=== PATIENT | female | born 1945 | race Caucasian/White ===

== ENCOUNTER → 2019-12-21 | Outpatient (CLI) | payer MEDICARE, BC ==
[2019-12-21 13:15] LABS: ABSOLUTE EOSINOPHILS # (AUTO) 0.1 10^3/uL (0.0-0.6); ABSOLUTE LYMPHOCYTES (AUTO) 1.2 10^3/uL (0.5-4.7); ABSOLUTE MONOCYTES (AUTO) 0.6 10^3/uL (0.1-1.4); ABSOLUTE NEUT (AUTO) 3.2 10^3/uL (1.7-8.2); BASOPHILS % (AUTO) 0.5 % (0-2); HEMATOCRIT 39.6 % (36.0-47.0); HEMOGLOBIN 13.6 g/dL (12.0-15.5); LYMPHOCYTES % (AUTO) 23.2 % (13-45); MEAN CORPUSCULAR HEMOGLOBIN 31.9 pg (27.0-33.4); MEAN CORPUSCULAR HGB CONC 34.3 g/dL (32.0-36.0); MEAN CORPUSCULAR VOLUME 93 fl (80-97); MONOCYTES % (AUTO) 12.4 % (3-13); PLATELET COUNT 246 10^3/uL (150-450); RED BLOOD COUNT 4.26 10^6/uL (3.72-5.28); RED CELL DISTRIBUTION WIDTH 14.1 % (11.5-14.0); SEGMENTED NEUTROPHILS % (AUTO) 62.9 % (42-78); TOTAL CELLS COUNTED % (AUTO) 100 %; WHITE BLOOD COUNT 5.1 10^3/uL (4.0-10.5)
[2019-12-21 13:41] LABS: ALBUMIN 4.5 g/dL (3.5-5.0); ALKALINE PHOSPHATASE 47 U/L (38-126); ANION GAP 10 (5-19); ASPARTATE AMINO TRANSFERASE 33 U/L (14-36); BILIRUBIN,DIRECT 0.2 mg/dL (0.0-0.4); BILIRUBIN,TOTAL 0.9 mg/dL (0.2-1.3); BLOOD UREA NITROGEN 12 mg/dL (7-20); CALCIUM 9.3 mg/dL (8.4-10.2); CARBON DIOXIDE 31 mmol/L (22-30); CHLORIDE 96 mmol/L (98-107); GLUCOSE 94 mg/dL (75-110); POTASSIUM 3.5 mmol/L (3.6-5.0); TOTAL PROTEIN 7.3 g/dL (6.3-8.2)
[2019-12-21 13:55] LABS: FREE T3 2.76 pg/mL (2.77-5.27); FREE T4 (FREE THYROXINE) 0.87 ng/dL (0.78-2.19)
[2019-12-21 14:09] LABS: THYROID STIMULATING HORMONE 2.78 uIU/mL (0.47-4.68)
[2019-12-21 14:16] LABS: ERYTHROCYTE SEDIMENTATION RATE 8 mm/hr (0-30)
[2019-12-21 14:28] LABS: C-REACTIVE PROTEIN < 5.0 mg/L (<10.0)
== END ==
LOC: OD 12:31
PROVIDERS: ATTEND Physician Assistant
DX: M25.50 Pain in unspecified joint (principal); G89.4 Chronic pain syndrome; F41.9 Anxiety disorder, unspecified; M79.10 Myalgia, unspecified site
CPT/HCPCS: 36415; 80053; 82306; 82607; 82652; 84439; 84443; 84481; 85025; 85652; 86140; 86431

== ENCOUNTER 2020-06-26 08:28 | Day surgery (SDC) | payer MEDICARE, BC ==
[2020-06-21 10:56] LABS: INTERNATIONAL RATION (INR) 0.98; PARTIAL THROMBOPLASTIN TIME 31.3 SEC (23.5-35.8); PROTHROMBIN TIME 13.2 SEC (11.4-15.4)
[2020-06-21 10:57] LABS: ABSOLUTE EOSINOPHILS # (AUTO) 0.1 10^3/uL (0.0-0.6); ABSOLUTE MONOCYTES (AUTO) 0.9 10^3/uL (0.1-1.4); ABSOLUTE NEUT (AUTO) 3.2 10^3/uL (1.7-8.2); BASOPHILS % (AUTO) 0.5 % (0-2); EOSINOPHILS % (AUTO) 1.9 % (0-6); HEMATOCRIT 40.2 % (36.0-47.0); HEMOGLOBIN 13.8 g/dL (12.0-15.5); LYMPHOCYTES % (AUTO) 18.6 % (13-45); MEAN CORPUSCULAR HEMOGLOBIN 31.9 pg (27.0-33.4); MEAN CORPUSCULAR HGB CONC 34.3 g/dL (32.0-36.0); MEAN CORPUSCULAR VOLUME 93 fl (80-97); MONOCYTES % (AUTO) 17.5 % (3-13); PLATELET COUNT 223 10^3/uL (150-450); RED BLOOD COUNT 4.32 10^6/uL (3.72-5.28); RED CELL DISTRIBUTION WIDTH 12.9 % (11.5-14.0); SEGMENTED NEUTROPHILS % (AUTO) 61.5 % (42-78); TOTAL CELLS COUNTED % (AUTO) 100 %; WHITE BLOOD COUNT 5.3 10^3/uL (4.0-10.5)
[2020-06-21 11:00] LABS: APPEARANCE,URINE CLEAR; BILIRUBIN,URINE NEGATIVE (NEGATIVE); COLOR,URINE YELLOW; GLUCOSE, URINE NEGATIVE (NEGATIVE); KETONES,URINE NEGATIVE (NEGATIVE); LEUKOCYTE ESTERASE,URINE NEGATIVE (NEGATIVE); NITRITE,URINE NEGATIVE (NEGATIVE); PROTEIN,URINE NEGATIVE (NEGATIVE); UROBILINOGEN,URINE NEGATIVE mg/dL (<2.0)
[2020-06-21 11:16] LABS: ANION GAP 8 (5-19); BLOOD UREA NITROGEN 14 mg/dL (7-20); CALCIUM 9.7 mg/dL (8.4-10.2); CARBON DIOXIDE 34 mmol/L (22-30); CHLORIDE 94 mmol/L (98-107); GLUCOSE 105 mg/dL (75-110); POTASSIUM 4.1 mmol/L (3.6-5.0)
--- NOTE | 2020-06-21 15:24 | EKG REPORT ---
SEVERITY:- NORMAL ECG - SINUS RHYTHM : Confirmed by: Marc Orozco MD 21-Jun-2020 15:23:38
[~2020-06-26 08:28] MED LIST: CEFAZOLIN 1 GM/D5W RTU 1 GM/50 ML RTUPB IV PRN; LACTATED RINGERS 1000 ML IV PRN; LIDOCAINE 0.5% INJ-PF (5 MG/ML) 50 ML SDV SUBCUT PRN
[2020-06-26] MEDS ORDERED: CEFAZOLIN 1 GM/D5W RTU 1 GM/50 ML RTUPB IV ONE (08:31)
[2020-06-26] MEDS ORDERED: LIDOCAINE 1% INJ-PF (10 MG/ML) 30 ML SDV ONE (09:07)
[2020-06-26] MEDS ORDERED: TRIAMCINOLONE ACETONIDE INJ 40 MG/1 ML VIAL ONE (09:07)
[2020-06-26] MEDS ORDERED: PROPOFOL INJ 200 MG/20 ML VIAL IV ONE (09:10)
[2020-06-26] MEDS ORDERED: FENTANYL CITRATE INJ/PF 100 MCG/2 ML AMPUL ONE ×2 (09:10→10:21)
[2020-06-26] MEDS ORDERED: KETAMINE HCL INJ 500 MG/10 ML VIAL ONE (09:10)
[2020-06-26] MEDS ORDERED: MIDAZOLAM 2 MG/2 ML INJ ONE (09:10)
[2020-06-26] MEDS ORDERED: ONDANSETRON HCL INJ/PF 4 MG/2 ML SDV IV PRN (09:44)
[2020-06-26] MEDS ORDERED: FENTANYL CITRATE INJ/PF 100 MCG/2 ML AMPUL IV PRN ×3 (09:44)
[2020-06-26] MEDS ORDERED: DIPHENHYDRAMINE HCL 50 MG/ML VIAL IV PRN (09:44)
[2020-06-26] MEDS ORDERED: MEPERIDINE HCL/PF INJ 25 MG/1 ML DISP.SYRIN IV PRN (09:44)
[2020-06-26] MEDS ORDERED: PROMETHAZINE HCL INJ 25 MG/1 ML VIAL IV PRN ×2 (09:44)
--- NOTE | 2020-06-26 10:12 | Operative Report ---
Operative Report DATE OF SURGERY: 06/26/20 Operative Report: After obtaining informed consent advising the patient of the risk and benefits, including serious neurological injury bleeding infection allergic reaction and , she was taken to the operating room. She was placed comfortably in the prone position. She was then prepped with chlorhexidine with a suitable drying time prior to draping. Fluoroscopy was used to evaluate the spine. The L3-4 target space was identified. An epidural needle was used to enter the L3-4 space after anesthetizing 1% lidocaine to enter in the midline. Epidurogram was performed with appropriate spread and some limitation inferiorly at the L3-4 level of contrast. Landmarks were identified and a suitable track was determined for placement of mild instrumentation. Beginning on the left side a small incision was made after local anesthetic 1% lidocaine was applied. It was repeated on the right side at the selected entrance level. Mild instrumentation trocar was then advanced through the small incision down to the lamina of the L3-4 level on the left. Multiple x-ray views were taken particularly oblique and AP to assure satisfactory location. The bone rongeur was then utilized to remove the lamina and ligament at that level on the left in the superior and inferior regions. The tissue sculptor was then utilized to remove additional tissue. Improvement of the contrast spread was noted. This procedure was then repeated on the right as described above. Again, additional improvement in the contrast spread was noted. There was felt to be satisfactorily opening of the epidural space at L3-4. , resolving some of the spinal stenosis. All instrumentation was removed. The region was cleansed. Steristrips were placed followed by sterile dressings. The patient was then taken to the PACU for further postoperative care and monitoring. PREOPERATIVE DIAGNOSIS: lumbar spinal stenosis with neurogenic claudication POSTOPERATIVE DIAGNOSIS: lumbar spinal stenosis with neurogenic claudication OPERATION: MILD L3/4 SURGEON: SHAHEEN GONZALEZ ANESTHESIA: LMAC TISSUE REMOVED OR ALTERED: as noted COMPLICATIONS: none ESTIMATED BLOOD LOSS: 10 cc INTRAOPERATIVE FINDINGS: none PROCEDURE: MILD L3/4
[2020-06-26] MEDS ORDERED: OXYCODONE-ACETAMINOPHEN 5-325 MG TABLET PO PRN (10:27)
[2020-06-26] MEDS ORDERED: PHENYLEPHRINE HCL INJ/PF 10 MG/1 ML SDV ONE (10:57)
[2020-06-26] MEDS ORDERED: OXYCODONE-ACETAMINOPHEN 5-325 MG TABLET ONE (11:00)
[2020-06-26 12:32] VITALS: BP 139/83
--- NOTE | 2020-06-26 15:54 | RADIOLOGY REPORT (SQ) ---
EXAM DESCRIPTION: NO CHG FLUORO; L SPINE 2 VIEWS IMAGES COMPLETED DATE/TIME: 06/26/2020 3:01 pm REASON FOR STUDY: MINIMALLY INVASIVE LUMBAR DECOMPRESSION ASST WITH FLUORO IN OR COMPARISON: None. FLUOROSCOPY TIME: 3.7 minutes 13 Images saved to PACS LIMITATIONS: 9 PROCEDURE: Lumbar decompression fluoro FINDINGS: Images from fluoro document the procedure. IMPRESSION: Lumbar decompression. Refer to operative note for further information. COMMENT: PQRS 6045F: Fluoroscopy time of the procedure is documented in the report. TECHNICAL DOCUMENTATION: JOB ID: [id number] 2010 [employer]- All Rights Reserved Reading location - IP/workstation name: [email or web address]
--- NOTE | 2020-06-26 15:54 | RADIOLOGY REPORT (SQ) ---
EXAM DESCRIPTION: NO CHG FLUORO; L SPINE 2 VIEWS IMAGES COMPLETED DATE/TIME: 06/26/2020 3:01 pm REASON FOR STUDY: MINIMALLY INVASIVE LUMBAR DECOMPRESSION ASST WITH FLUORO IN OR COMPARISON: None. FLUOROSCOPY TIME: 3.7 minutes 13 Images saved to PACS LIMITATIONS: 9 PROCEDURE: Lumbar decompression fluoro FINDINGS: Images from fluoro document the procedure. IMPRESSION: Lumbar decompression. Refer to operative note for further information. COMMENT: PQRS 6045F: Fluoroscopy time of the procedure is documented in the report. TECHNICAL DOCUMENTATION: JOB ID: [id number] 2010 [email or web address]- All Rights Reserved Reading location - IP/workstation name: [email or web address]
== END 2020-06-26 12:01 | disposition home or self-care (01) ==
LOC: OROUT 08:28
PROVIDERS: ATTEND Student in an Organized Health Care Education/Training Program
DX: M48.062 Spinal stenosis, lumbar region with neurogenic claudication (principal); Z00.6 Encounter for examination for normal comparison and control in clinical research program; I10 Essential (primary) hypertension; M19.90 Unspecified osteoarthritis, unspecified site; Z03.818 Encounter for observation for suspected exposure to other biological agents ruled out; Z79.899 Other long term (current) drug therapy; Z87.891 Personal history of nicotine dependence; Z01.812 Encounter for preprocedural laboratory examination
CPT/HCPCS: 93005; 36415; 85025; 85610; 85730; 80048; 81001; 72100; 93010; 00630; 0275T; C1889; Q9966; U0003; J2250; J0690; J3010; J3490 ×2; A9270; J2370; J3301; J2704; C9803; 630; 87635

== ENCOUNTER 2020-11-22 12:27 | Emergency (ER) | payer MEDICARE, BC ==
--- NOTE | 2020-11-22 13:09 | ER Document Report ---
ED Medical Screen (RME) - General Stated Complaint: POSSIBLE BLOOD CLOT IN LEG Time Seen by Provider: 11/22/20 13:02 Primary Care Provider: STANLEY MIRELES PA [Primary Care Provider] - Follow up as needed Mode of Arrival: Wheelchair Information source: Patient Notes: 75-year-old female patient presented to the emergency department concern for possible blood clot. Patient has significant swelling to her left lower extremity that began yesterday. She also reports pain in this area. She denies any history of DVTs or PEs. She is not on any blood thinners. Denies any recent travel or active cancer diagnosis. Patient does report she had pain in her right lower extremity recently, she was sent for an MRI and her doctor called her today stating that she needs an emergent pelvic MRI. She is not sure why they are requesting this test. I have greeted and performed a rapid initial assessment of this patient. A comprehensive ED assessment and evaluation of the patient, analysis of test results and completion of the medical decision making process will be conducted by additional ED providers. I have specifically instructed the patient or family members with the patient to immediately return to any nursing staff should anything change in the patient's condition or with their chief complaint. TRAVEL OUTSIDE OF THE [place] IN LAST 30 DAYS: No - Related Data Allergies/Adverse Reactions: telithromycin [From KETEK] Allergy (Verified 06/26/20 08:39) body rash cyclobenzaprine [From Flexeril] Adverse Reaction (Verified 06/26/20 08:39) Past Medical History - Past Medical History Cardiac Medical History: Reports: Hx Hypertension Denies: Hx Coronary Artery Disease, Hx Heart Attack Pulmonary Medical History: Denies: Hx Asthma, Hx Bronchitis, Hx COPD, Hx Pneumonia Neurological Medical History: Denies: Hx Cerebrovascular Accident, Hx Seizures GI Medical History: Denies: Hx Hepatitis, Hx Hiatal Hernia, Hx Ulcer Musculoskeltal Medical History: Reports Hx Arthritis - GENERALIZED Infectious Medical History: Denies: Hx Hepatitis Past Surgical History: Reports: Hx Hysterectomy. Denies: Hx Mastectomy, Hx Open Heart Surgery, Hx Pacemaker - Immunizations Hx Diphtheria, Pertussis, Tetanus Vaccination: Yes Physical Exam - Vital signs Vitals: Temp Pulse Resp BP Pulse Ox 98.4 F 72 16 93/55 L 91 L 11/22/20 12:59 11/22/20 12:59 11/22/20 12:59 11/22/20 12:59 11/22/20 12:59 Course - Vital Signs Vital signs: Temp Pulse Resp BP Pulse Ox 98.4 F 72 16 91/50 L 91 L 11/22/20 12:59 11/22/20 12:59 11/22/20 12:59 11/22/20 13:01 11/22/20 12:59 Doctor's Discharge - Discharge Referrals: STANLEY MIRELES PA [Primary Care Provider] - Follow up as needed
[2020-11-22 14:10] LABS: ABSOLUTE EOSINOPHILS # (AUTO) 0.1 10^3/uL (0.0-0.6); ABSOLUTE MONOCYTES (AUTO) 1.4 10^3/uL (0.1-1.4); ABSOLUTE NEUT (AUTO) 6.3 10^3/uL (1.7-8.2); BASOPHILS % (AUTO) 0.5 % (0-2); EOSINOPHILS % (AUTO) 1.2 % (0-6); HEMATOCRIT 34.5 % (36.0-47.0); HEMOGLOBIN 11.9 g/dL (12.0-15.5); MEAN CORPUSCULAR HGB CONC 34.5 g/dL (32.0-36.0); MEAN CORPUSCULAR VOLUME 90 fl (80-97); MONOCYTES % (AUTO) 15.8 % (3-13); PLATELET COUNT 235 10^3/uL (150-450); RED BLOOD COUNT 3.84 10^6/uL (3.72-5.28); RED CELL DISTRIBUTION WIDTH 13.5 % (11.5-14.0); SEGMENTED NEUTROPHILS % (AUTO) 71.5 % (42-78); TOTAL CELLS COUNTED % (AUTO) 100 %; WHITE BLOOD COUNT 8.8 10^3/uL (4.0-10.5)
[2020-11-22 14:15] LABS: INTERNATIONAL RATION (INR) 1.01; PROTHROMBIN TIME 13.5 SEC (11.4-15.4)
[2020-11-22 14:16] LABS: PARTIAL THROMBOPLASTIN TIME 37.4 SEC (23.5-35.8)
--- NOTE | 2020-11-22 14:26 | ER Document Report ---
ED General - General Chief Complaint: Leg Pain Stated Complaint: POSSIBLE BLOOD CLOT IN LEG Time Seen by Provider: 11/22/20 13:02 Primary Care Provider: STANLEY MIRELES PA [Primary Care Provider] - Follow up as needed Mode of Arrival: Wheelchair Information source: Patient TRAVEL OUTSIDE OF THE [place] IN LAST 30 DAYS: No - HPI Notes: Patient presents with some pain and swelling of her left leg. This began yesterday. She has never had anything like this before. She is undergoing evaluation for problems with what sounds like back pain and sciatica involving her right leg. She says that she had an MRI scan done at another facility was ordered by Dr. Guaman from pain management. She is not exactly sure what was scanned or what was found but it sounds like she was having a MRI of the lumbar spine. She got a call from Dr. Guaman's office yesterday saying that she needed a urgent MRI of her pelvis and that is scheduled for tomorrow. Since then she has developed a swelling in her left leg. She has no history of VTE. She denies any weight gain or weight loss. She denies any night sweats. She denies any urinary symptoms. She denies any abdominal bloating. She denies any unusual DERMATOPATHOLOGIST symptoms. She is otherwise her usual state of health. - Related Data Allergies/Adverse Reactions: telithromycin [From KETEK] Allergy (Verified 06/26/20 08:39) body rash cyclobenzaprine [From Flexeril] Adverse Reaction (Verified 06/26/20 08:39) Past Medical History - General Information source: Patient - Social History Smoking Status: Unknown if Ever Smoked Family History: Reviewed & Not Pertinent - Medical History Medical History: Other Notes: Past medical history as documented in the electronic health record is reviewed. - Past Medical History Cardiac Medical History: Reports: Hx Hypertension Denies: Hx Coronary Artery Disease, Hx Heart Attack Pulmonary Medical History: Denies: Hx Asthma, Hx Bronchitis, Hx COPD, Hx Pneumonia Neurological Medical History: Denies: Hx Cerebrovascular Accident, Hx Seizures GI Medical History: Denies: Hx Hepatitis, Hx Hiatal Hernia, Hx Ulcer Musculoskeletal Medical History: Reports Hx Arthritis - GENERALIZED Infectious Medical History: Denies: Hx Hepatitis Past Surgical History: Reports: Hx Hysterectomy. Denies: Hx Mastectomy, Hx Open Heart Surgery, Hx Pacemaker - Immunizations Hx Diphtheria, Pertussis, Tetanus Vaccination: Yes Review of Systems - Review of Systems Notes: All other systems are reviewed and are negative or noncontributory except as noted the present illness. Physical Exam - Vital signs Vitals: Temp Pulse Resp BP Pulse Ox 98.4 F 72 16 93/55 L 91 L 11/22/20 12:59 11/22/20 12:59 11/22/20 12:59 11/22/20 12:59 11/22/20 12:59 - Notes Notes: Well-developed well-nourished female no acute distress. Vital signs and nursing chief complaint are reviewed. HEENT is grossly within normal limits. Neck: Supple nontender no adenopathy. Lungs: Clear to auscultation. Heart: Regular rate and rhythm no murmur. Abdomen: Mildly obese, soft, nontender, no masses or organomegaly. Extremities: The right lower extremity is normal. Left lower extremity is newly edematous about 3 cm larger than the right with a bit of hyperemic flush to it. There is a bit warm to touch. She has negative Homans' sign. Capillary refill is normal pulses are intact. Skin: Is intact and warm with no rashes. Neuro: Alert and oriented x3. Cranial nerves are intact. Strength and sensation are grossly within normal limits. Course - Re-evaluation Re-evalutation: 11/22/20 20:50 The patient rested comfortably throughout her stay. We were able to obtain MRI results from the other day. What they actually saw was some soft tissue density or inflammation and an area that appeared to be clot. CT of the abdomen and pelvis was carried out. The patient was hydrated before and afterwards. No malignancy or soft tissue mass was identified. However the patient does have clot high in her venous system but not into the IVC. Troponin and BNP were o btained to look for right heart strain and there was no evidence of any problem there. VQ scan was done and showed no evidence of pulmonary embolism. Given that the patient was hemodynamically completely stable and had no evidence of any problem beyond a DVT of her left leg she I think can be safely treated at home with a direct oral anticoagulant. I discussed oral anticoagulation risks benefits and alternatives with the patient and her friend at length. All of her questions were answered. We ultimately settled on starting her on Eliquis 10 mg twice a day for 7 days and then transitioning to 5 mg twice a day. I advised her that she will need to follow-up with her primary care provider within 5 to 7 days. She also will need to make her pain management doctor aware that she is anticoagulated in case any further interventions are planned. - Vital Signs Vital signs: Temp Pulse Resp BP Pulse Ox 98.8 F 72 15 94/54 L 96 11/22/20 16:01 11/22/20 12:59 11/22/20 18:01 11/22/20 18:01 11/22/20 18:01 - Laboratory Results Result Diagrams: 11/22/20 13:42 11/22/20 13:42 Laboratory Results Interpreted: 11/22/20 11/22/20 11/22/20 13:42 13:42 13:42 Hgb 11.9 L Hct 34.5 L Lymph % (Auto) 11.0 L Laurens % (Auto) 15.8 H APTT 37.4 H Sodium 131.3 L Chloride 90 L Carbon Dioxide 33 H BUN 39 H Creatinine 1.71 H Est GFR ( Amer) 35 L Est GFR (MDRD) Non-Af 29 L Glucose 138 H Total Bilirubin 1.4 H Ur Leukocyte Esterase 11/22/20 17:32 Hgb Hct Lymph % (Auto) Laurens % (Auto) APTT Sodium Chloride Carbon Dioxide BUN Creatinine Est GFR ( Amer) Est GFR (MDRD) Non-Af Glucose Total Bilirubin Ur Leukocyte Esterase SMALL H Critical Laboratory Results Reviewed: No Critical Results - Radiology Results Radiology Results Interpreted: 11/22/20 20:53 Venous Doppler Study 11/22/20 13:07 IMPRESSION: Positive for acute DVT. Abdomen/Pelvis CT 11/22/20 15:00 IMPRESSION: Mild inflammatory changes associated with known thrombus in the left external iliac vein. No evidence of pelvic mass. Critical Radiology Results Reviewed: Yes Attending or Supervising Physician who Reviewed Radiology: ANABELLA BEEBE Discharge - Discharge Clinical Impression: Acute deep vein thrombosis (DVT) of left lower extremity Qualifiers: Affected thrombotic vein of extremity: femoral Qualified Code(s): I82.412 - Acute embolism and thrombosis of left femoral vein Condition: Good Disposition: HOME, SELF-CARE Instructions: DVT Outpatient Treatment ([facility]) Additional Instructions: Call your primary care doctor's office tomorrow and make an appointment to be seen in 3 to 5 days. Please tell them you need an ER follow-up. You have been issued a prescription by computer to your pharmacy for a medication called Eliquis which is a blood thinner. Please pick that up tomorrow and get started on it 10 mg twice a day for 7 days. Then decrease to 5 mg twice a day thereafter. You will need to remain on this medicine for at least 6 to 9 months. While you are on a blood thinner you must be very careful not to cut or injure yourself. If you fall and strike your head you should go to the emergency department immediately for evaluation. You should go even if you are not knocked out. If you have bleeding from your nose, gums, or intestines you should report to the emergency department for evaluation. Return if any other concerning symptoms develop. Prescriptions: Apixaban [Eliquis 5 mg Tablet] 5 mg PO SUSHILA #60 tablet Referrals: STANLEY MIRELES PA [Primary Care Provider] - Follow up as needed
[2020-11-22 14:33] LABS: ALBUMIN 4.2 g/dL (3.5-5.0); ALKALINE PHOSPHATASE 69 U/L (38-126); ANION GAP 8 (5-19); ASPARTATE AMINO TRANSFERASE 32 U/L (14-36); BILIRUBIN,DIRECT 0.3 mg/dL (0.0-0.4); BILIRUBIN,TOTAL 1.4 mg/dL (0.2-1.3); BLOOD UREA NITROGEN 39 mg/dL (7-20); CALCIUM 9.5 mg/dL (8.4-10.2); CARBON DIOXIDE 33 mmol/L (22-30); CHLORIDE 90 mmol/L (98-107); GLUCOSE 138 mg/dL (75-110); POTASSIUM 3.6 mmol/L (3.6-5.0); TOTAL PROTEIN 6.8 g/dL (6.3-8.2)
[2020-11-22] MEDS ORDERED: NORMAL SALINE 500 ML IV ONE (15:04)
--- NOTE | 2020-11-22 15:10 | RADIOLOGY REPORT (SQ) ---
EXAM DESCRIPTION: VENOUS UNILATERAL LOWER IMAGES COMPLETED DATE/TIME: 11/22/2020 2:59 pm REASON FOR STUDY: LLE pain/swelling COMPARISON: None. TECHNIQUE: Dynamic and static bob scale and color images acquired of the left leg venous system. Se lected spectral images acquired with additional compression and augmentation maneuvers. The contralat eral common femoral vein and saphenofemoral junction were also imaged. Images stored on PACS. LIMITATIONS: None. FINDINGS: There is occlusive thrombus extending from the external iliac vein into the common femoral vein and saphenous femoral junction. The more distal veins are patent. CONTRALATERAL COMMON FEMORAL VEIN AND SAPHENOFEMORAL JUNCTION: Normal phasicity, compression and augmentation. No visualized echogenic material on bob scale. No de fects on color images. IMPRESSION: Positive for acute DVT. TECHNICAL DOCUMENTATION: JOB ID: [id number] 2010 [employer]- All Rights Reserved Reading location - IP/workstation name: [email or web address]
--- NOTE | 2020-11-22 16:12 | RADIOLOGY REPORT (SQ) ---
EXAM DESCRIPTION: CT ABD/PELVIS WITH IV ONLY IMAGES COMPLETED DATE/TIME: 11/22/2020 3:51 pm REASON FOR STUDY: Pelvic mass, DVT COMPARISON: None. TECHNIQUE: CT scan of the abdomen and pelvis performed using helical scanning technique with dynamic intravenous contrast injection. No oral contrast. Images reviewed with lung, soft tissue, and bone windows. Reconstructed coronal and sagittal MPR images reviewed. Delayed images for evaluation of the urinary system also acquired. All images stored on PACS. All CT scanners at this facility use dose modulation, iterative reconstruction, and/or weight based d osing when appropriate to reduce radiation dose to as low as reasonably achievable (ALARA). [facility]: Dose Right [facility]: CareDose [facility]: Dose Right [facility]: Teradose 4D [facility]: MTPV CONTRAST TYPE AND DOSE: contrast/concentration: Isovue 350.00 mmol/ml; Total Contrast Delivered: 97. 0 ml; Total Saline Delivered: 34.7 ml RENAL FUNCTION: Creatinine 1.7 RADIATION DOSE: CT Rad equipment meets quality standard of care and radiation dose reduction techniq ues were employed. CTDIvol: 14.2 - 17.6 mGy. DLP: 1763 mGy-cm.. LIMITATIONS: None. FINDINGS: LOWER CHEST: No significant findings. No nodules or infiltrates. LIVER: Normal size. No masses. No dilated ducts. SPLEEN: Normal size. No focal lesions. PANCREAS: No masses. No significant calcifications. No adjacent inflammation or peripancreatic fluid collections. Pancreatic duct not dilated. GALLBLADDER: Surgically absent. ADRENAL GLANDS: No significant masses or asymmetry. RIGHT KIDNEY AND URETER: No solid masses. No significant calcifications. No hydronephrosis or hyd roureter. LEFT KIDNEY AND URETER: No solid masses. No significant calcifications. No hydronephrosis or hydr oureter. AORTA AND VESSELS: Inflammatory changes adjacent to mildly dilated left external iliac vein. No obvi ous thrombus in the more proximal vein and IVC. RETROPERITONEUM: No retroperitoneal adenopathy, hemorrhage or masses. BOWEL AND PERITONEAL CAVITY: No masses or inflammatory changes. No free fluid or peritoneal masses. APPENDIX: Not visualized. PELVIS: No mass. No free fluid. Normal bladder. ABDOMINAL WALL: Prior anterior abdominal wall hernia repair. BONES: No significant or acute findings. OTHER: No other significant finding. IMPRESSION: Mild inflammatory changes associated with known thrombus in the left external iliac vein . No evidence of pelvic mass. TECHNICAL DOCUMENTATION: JOB ID: [id number] Quality ID # [id number]: Final reports with documentation of one or more dose reduction techniques (e.g., Au tomated exposure control, adjustment of the mA and/or kV according to patient size, use of iterative reconstruction technique) 2010 [employer]- All Rights Reserved Reading location - IP/workstation name: [email or web address]
[2020-11-22 18:26] LABS: APPEARANCE,URINE CLEAR; BILIRUBIN,URINE NEGATIVE (NEGATIVE); COLOR,URINE YELLOW; GLUCOSE, URINE NEGATIVE (NEGATIVE); KETONES,URINE NEGATIVE (NEGATIVE); LEUKOCYTE ESTERASE,URINE SMALL (NEGATIVE); NITRITE,URINE NEGATIVE (NEGATIVE); PROTEIN,URINE NEGATIVE (NEGATIVE); URINE SPECIFIC GRAVITY 1.029; UROBILINOGEN,URINE NEGATIVE mg/dL (<2.0)
[2020-11-22 19:08] LABS: NT PRO BNP 54 pg/mL (<125)
[2020-11-22 19:12] LABS: TROPONIN I < 0.012 ng/mL
--- NOTE | 2020-11-22 20:17 | RADIOLOGY REPORT (SQ) ---
NUCLEAR MEDICINE LUNG PERFUSION IMAGING Clinical indication: Shortness of breath. Comparison: None available Correlation: None available Technique: Perfusion imaging was obtained as per standard protocol after intravenous administration of 5.7 mCi of technetium 99m labeled MAA. Findings: Homogeneous localization of radiotracer is identified on perfusion imaging. No segmental or subsegmental defects are identified to suggest a pulmonary embolus. Impression: No evidence of pulmonary embolus.
[2020-11-22] MEDS ORDERED: APIXABAN 5 MG TABLET PO ONE (20:49)
[2020-11-22 21:58] VITALS: BP 87/57
== END 2020-11-22 21:59 | disposition home or self-care (01) ==
LOC: ER 12:27
DX: I82.412 Acute embolism and thrombosis of left femoral vein (principal); I82.422 Acute embolism and thrombosis of left iliac vein; I10 Essential (primary) hypertension; Z88.1 Allergy status to other antibiotic agents
CPT/HCPCS: 99285; 96360; 36415; 87086; 85025; 85610; 85730; 80053; 81001; 84484; 83880; 93971; 78582; 74177; A9540; A9567; J7040; A9270; Q9969